=== PATIENT | female | born 1985 | race Caucasian/White ===

== ENCOUNTER 2018-05-21 05:55 | Day surgery (SDC) | payer OTHER ==
[~2018-05-21] VITALS: Ht 165.1 cm; Wt 101.2 kg
[2018-05-21] MEDS ORDERED: DEXAMETHASONE SOD PHOSPHATE 4 MG/ML VIAL IVP ONE (08:35)
[2018-05-21] MEDS ORDERED: DESFLURANE 15 MIN GAS INH ONE (08:35)
[2018-05-21] MEDS ORDERED: ONDANSETRON HCL 4 MG/2 ML VIAL IVP ONE (08:35)
[2018-05-21] MEDS ORDERED: KETOROLAC TROMETHAMINE 30 MG VIAL IVP ONE (08:35)
[2018-05-21] MEDS ORDERED: NS 1000 ML IV.SOLN IV ONE (08:35)
[2018-05-21] MEDS ORDERED: PROPOFOL 200MG/ 20ML VIAL (DIPRIVAN) IV ONE (08:35)
[2018-05-21] MEDS ORDERED: fentaNYL CITRATE/PF 100 MCG/2 ML AMP IVP ONE (08:35)
[2018-05-21] MEDS ORDERED: NS IRRIG SOLN 1000 ML IR ONE (08:35)
[2018-05-21] MEDS ORDERED: LR 1,000 ML IV.SOLN IV ONE (08:35)
[2018-05-21] MEDS ORDERED: MIDAZOLAM HCL 5 MG/5 ML VIAL IVP ONE (08:35)
[2018-05-21] MEDS ORDERED: ROCURONIUM BROMIDE 10 MG/ML (ZEMURON) IV ONE (08:35)
[2018-05-21] MEDS ORDERED: LR 1,000 ML IV SCH (09:20)
[2018-05-21] MEDS ORDERED: MEPERIDINE HCL/PF 25 MG/ML DISP.SYRIN IVP PRN (09:30)
[2018-05-21] MEDS ORDERED: HYDROmorphone 2 MG/ML VIAL IVP PRN ×2 (09:30)
[2018-05-21] MEDS ORDERED: ONDANSETRON HCL 4 MG/2 ML VIAL IVP PRN (09:30)
[2018-05-21] MEDS ORDERED: IBUPROFEN 800 MG TABLET PO PRN (09:30)
[2018-05-21] MEDS ORDERED: HYDROmorphone 1 MG INJ. 1 MG/ML AMPUL IVP PRN (09:30)
[2018-05-21] MEDS ORDERED: OXYCODONE/ACETAMINOPHEN 5-325 TABLET PO PRN ×2 (09:30)
[2018-05-21] MEDS ORDERED: HYDROmorphone 2 MG/ML VIAL ONE (09:55)
[2018-05-21 10:33] VITALS: BP_SYST 129
== END 2018-05-21 11:30 | disposition home or self-care (01) ==
LOC: SMU 05:55 → SDS 05:55
PROVIDERS: ATTEND Obstetrics & Gynecology
DX: N84.0 Polyp of corpus uteri (principal); D25.9 Leiomyoma of uterus, unspecified; Z83.3 Family history of diabetes mellitus; Z82.49 Family history of ischemic heart disease and other diseases of the circulatory system; Z80.0 Family history of malignant neoplasm of digestive organs; Z82.61 Family history of arthritis; Z68.37 Body mass index [BMI] 37.0-37.9, adult; E66.01 Morbid (severe) obesity due to excess calories; Z79.899 Other long term (current) drug therapy; E11.9 Type 2 diabetes mellitus without complications
CPT/HCPCS: 36415 ×2; 58558; 82962; 83036; 86886; 86900; 86901; 88305; J1100; J1170; J1885; J2250; J2405; J2704; J3010; J7030; J7120